=== PATIENT | male | born 1955 | race Caucasian/White ===

== ENCOUNTER 2018-02-27 10:54 | Observation (INO) | payer OTHER ==
[2018-02-27] MEDS ORDERED: PROMETHAZINE HCL 25 MG/ML INJ IVP PRN ×2 (11:28→14:38)
[2018-02-27] MEDS ORDERED: LR 1,000 ML IV SCH ×2 (11:28)
[2018-02-27] MEDS ORDERED: oxyCODONE IR 5 MG TAB PO PRN (11:28)
[2018-02-27] MEDS ORDERED: ONDANSETRON DISINTEGRATING 4 MG TAB PO PRN (11:28)
[2018-02-27] MEDS ORDERED: ceFAZolin 2 GM/SWFI 2 GM/20 ML SYR IVP ONE (11:28)
[2018-02-27] MEDS ORDERED: LIDOCAINE 1% 2 ML INJ ID PRN (11:33)
[2018-02-27] MEDS ORDERED: LR 1,000 ML IV ONE (11:33)
--- NOTE | 2018-02-27 12:10 | PDHPUP ---
History & Physical Update H&P update statement: This history and physical update is based on an assessment of the patient which was completed after admission or registration (within 24 hours), but prior to the surgery/procedure. Patient discussed/agreed upon with Dr. Jang. H&P update: H&P reviewed & patient examined, no change in patient's condition since H&P completed H&P changes: None.
[2018-02-27] MEDS ORDERED: MIDAZOLAM 2 MG/2 ML VIAL ONE (13:05)
[2018-02-27] MEDS ORDERED: MIDAZOLAM 2 MG/2 ML VIAL IVP ONE (13:08)
--- NOTE | 2018-02-27 13:10 | PDANEPAE ---
ANE History of Present Illness r knee oa ANE Past Medical History - Cardiovascular History Hx Hypertension: No Hx Arrhythmias: No Hx Chest Pain: No Hx Coronary Artery / Peripheral Vascular Disease: No Hx CHF / Valvular Disease: No Hx Palpitations: No - Pulmonary History Hx COPD: No Hx Asthma/Reactive Airway Disease: No Hx Recent Upper Respiratory Infection: No Hx Oxygen in Use at Home: No Hx Sleep Apnea: No Sleep Apnea Screening Result - Last Documented: Negative - Neurologic History Hx Cerebrovascular Accident: No Hx Seizures: No Hx Dementia: No - Endocrine History Hx Diabetes: No - Renal History Hx Renal Disorders: No - Liver History Hx Hepatic Disorders: No - Neurological & Psychiatric Hx Hx Neurological and Psychiatric Disorders: No - Cancer History Hx Cancer: No - Congenital Disorder History Hx Congenital Disorders: No - GI History Hx Gastrointestinal Disorders: Yes Gastrointestinal History Comment: DIFFICULTY SWALLOWING - EGD W/DILATION - Other Health History Other Health History: NEG - Chronic Pain History Chronic Pain: Yes (HIMANSHU KNEE PAIN) - Surgical History Prior Surgeries: KNEE R SCOPE. EGD W/DILATION X2. COLONOSCOPY. DENTAL IMPLANTS ANE Review of Systems Review of Systems: - Exercise capacity METS (RN): 5 METS ANE Patient History - Allergies Allergies/Adverse Reactions: No Known Allergies Allergy (Verified 02/27/18 11:41) - Home Medications Home Medications: Naproxen 02/21/18 [Last Taken 02/13/18] - NPO status NPO Since - Liquids (Date): 02/27/18 NPO Since - Liquids (Time): 09:00 NPO Since - Solids (Date): 02/26/18 NPO Since - Solids (Time): 21:00 - Smoking Hx Smoking Status: Former smoker - Family Anes Hx Family Hx Anesthesia Complications: NEG ANE Labs/Vital Signs - Vital Signs Blood Pressure: 133/98 Heart Rate: 90 Respiratory Rate: 16 O2 Sat (%): 94 Height: 180.34 cm Weight: 90.718 kg ANE Physical Exam - Airway Neck exam: FROM Mallampati Score: Class 1 Mouth exam: normal dental/mouth exam - Pulmonary Pulmonary: no respiratory distress - Cardiovascular Cardiovascular: regular rate and rhythym - ASA Status ASA Status: II ANE Anesthesia Plan Anesthesia Plan: GA w LMA, MAC, spinal Regional Anesthesia: adductor canal FNB
[2018-02-27] MEDS ORDERED: BACITRACIN 50,000 UNITS/10 ML SYR IRR ONE (13:11)
[2018-02-27] MEDS ORDERED: POLYMYXIN B SULFATE 500,000 UNIT/10 ML SYR IRR ONE (13:11)
[2018-02-27] MEDS ORDERED: fentaNYL 100 MCG/2 ML INJ ONE (13:12)
[2018-02-27] MEDS ORDERED: PROPOFOL/EMULSION 500 MG/50 ML BOTTLE IV ONE (13:12)
[2018-02-27] MEDS ORDERED: TRANEXAMIC ACID 1,000 MG in NS (SYRINGE) 50 ML IV ONE (13:25)
[2018-02-27] MEDS ORDERED: ROPIVACAINE 0.2% 80 MG, EPINEPHrine 0.2 MG, KETOROLAC TROMETHAMINE 30 MG, morphINE 10 M... IU ONE (13:27)
[2018-02-27] MEDS ORDERED: ceFAZolin 1 GM/5 ML SYR ONE (13:57)
[2018-02-27] MEDS ORDERED: HYDROmorphONE/DILAUDID 2 MG/ML INJ ONE (13:59)
[2018-02-27] MEDS ORDERED: *IRR*TRANEXAMIC ACID 3,000 MG/NS 50 ML IRR ONE (14:00)
[2018-02-27] MEDS ORDERED: BUPI/epINEPH/KETOROLAC/morphINE IU ONE (14:00)
[2018-02-27] MEDS ORDERED: PHENYLEPHRINE HCL 100 MCG/ML SYR ONE (14:10)
[2018-02-27] MEDS ORDERED: DEXAMETHASONE 4 MG/ML VIAL ONE (14:10)
[2018-02-27] MEDS ORDERED: ONDANSETRON 4 MG/2 ML VIAL ONE (14:10)
[2018-02-27] MEDS ORDERED: METOCLOPRAMIDE 10 MG/2 ML VIAL IVP PRN (14:38)
[2018-02-27] MEDS ORDERED: NALOXONE HCL 0.4 MG/ML INJ IVP PRN (14:38)
[2018-02-27] MEDS ORDERED: HYDROmorphONE/DILAUDID 1 MG/ML INJ IVP PRN (14:38)
[2018-02-27] MEDS ORDERED: ONDANSETRON 4 MG/2 ML VIAL IVP PRN (14:38)
[2018-02-27] MEDS ORDERED: fentaNYL 100 MCG/2 ML INJ IVP PRN (14:38)
--- NOTE | 2018-02-27 16:06 | POSTOPPROG ---
Post Op Note Date of Operation: 02/27/18 Surgeon: Jomar Jang Insulation Installer: Dolores Hitchcock, KRISTEN Anesthesia: GET(General Endotracheal) Pre-op Diagnosis: Right knee medial compartment OA Post-op Diagnosis: Right knee medial compartment OA Procedure: Right knee medial knee replacement. Inf/Abcess present in the surg proc area at time of surgery?: No Depth: Deep Incisional (Fascial) EBL: Minimal Complications: None.
--- NOTE | 2018-02-27 16:15 | POSTANESTH ---
Post Anesthetic Evaluation Cardiovascular Status: Normal, Stable Respiratory Status: Normal, Stable Level of Consciousness/Mental Status: Can Participate in Eval Pain Control: Adequate, Prn Tx Ordered Nausea/Vomiting Control: Adequate, Prn Tx Ordered Complications Possibly Related to Anesthesia: None Noted
[2018-02-27] MEDS: ONDANSETRON 4 MG/2 ML VIAL IVP PRN ×2 (18:10→19:34)
[2018-02-27] MEDS ORDERED: TRANEXAMIC ACID 1,000 MG in NS 100 ML IV ONE (19:00)
[2018-02-27] MEDS: ceFAZolin 2 GM/SWFI 2 GM/20 ML SYR IVP SCH (20:24)
[2018-02-27] MEDS ORDERED: ceFAZolin 2 GM/DEXTROSE 100 ML IV SCH (21:00)
--- NOTE | 2018-02-27 23:05 | GOP ---
[f rep st] OPERATIVE REPORT DATE OF OPERATION: 02/27/2018 SURGEON: Jomar Jang MD GEOSPATIAL IMAGE ANALYST: Dolores Hitchcock PA-C ANESTHESIA: General plus spinal plus adductor block. ANESTHESIOLOGIST: Amanda Weston MD PREOPERATIVE DIAGNOSIS: Right knee medial compartment osteoarthritis. POSTOPERATIVE DIAGNOSIS: Right knee medial compartment osteoarthritis. PROCEDURE PERFORMED: Right knee medial compartment unicondylar arthroplasty. FINDINGS: Endstage [id number] diffuse medial femoral condyle osteoarthritis, with eburnation of bone and complete loss of cartilage. Anteromedial tibial plateau osteoarthritis with similar findings, i.e. full-thickness arthritis and loss of cartilage. There were multiple periarticular osteophytes, particularly around the medial compartment. Lateral compartment was with normal chondral surfaces and no arthritis. 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 ACL and PCL were intact. Ligaments otherwise stable throughout. SPECIMENS: None. ESTIMATED BLOOD LOSS: 10 cc. INDICATIONS: This is a 62-year-old male, with right knee endstage [id number] medial compartment osteoarthritis. The patient has failed conservative care under my care for greater than one-half year. He has had prior knee injections , including steroid and PRP. He has exhausted assistive device as well as p.o. NSAID use. He underwent a partial meniscectomy via arthroscopy multiple months prior to surgery. After failing all conservative and/or non-arthroplasty care, the patient has elected to proceed with the right knee surgery as listed above. The risks, benefits, and alternatives have been discussed with the patient. All his questions have been answered prior to surgery. He has provided a signed and witnessed informed consent, which has been placed in his chart. Please see History and Physical for additional information. DESCRIPTION OF PROCEDURE: The patient was identified in the preoperative holding area and his right knee was signed and designated as the operative site. The patient was confirmed in left lower extremity toes and SCDs. He was treated with 2 g IV prophylactic cefazolin per protocol. The patient also received 1 g IV tranexamic acid prior to tourniquet inflation, as well as knee irrigation after component implantation with 3 g of tranexamic acid in 100 mL of saline. Patient was treated with standard adductor block and spinal, per the anesthesia service plan. Please see their notes for additional information. He then underwent general anesthesia and was placed supine on the OR table. Left lower extremity was confirmed to be padded throughout. Both upper extremities were placed on well-padded arm boards. Right lower extremity was wrapped proximally with cast padding and a nonsterile tourniquet and then placed over a well- padded thigh positioning device, which would allow at least 110-120 degrees of flexion of the knee. Right lower extremity was then prepped and draped in the usual sterile manner. Please note, the surgery was performed with the standard Biomet [place] Microplasty UK[employer] published technique. Esmarch exsanguination was used to inflate the tourniquet to 250 mmHg. A standard medial parapatellar incision was made over a length of approximately 8 cm. Full-thickness dermal incision was made with a #10 blade. Careful dissection was taken down through the subcutaneous fat and patellar retinaculum was divided in parallel with the incision. Next, a full-thickness arthrotomy was performed in a medial parapatellar fashion leaving a small cuff tissue on the medial aspect of the patella. Dissection was taken down through the intra- articular fat, including Hoffa fat pad. This was divided and some of the fat pad was excised anteriorly and medially. Careful dissection was then carried in a subperiosteal manner along the anterior tibial plateau to the level of the eventual vertical cut and medially out to the midportion of the medial tibial plateau. A Z retractor was placed. The anterior horn of the medial meniscus was resected out to the level of the body. Once this was completed, the tibial extramedullary guide was applied to the tibia and positioned in the appropriate position. Using the 4G clamp, the height and overall positioning of the tibial cutting block was optimized using the standard 1 mm size medium femoral spoon. Once this was all confirmed to be in the appropriate position, the CAM was locked in place and the extramedullary guide tightened. Two pins were used to stabilize the cutting block. The slotted guide was used for horizontal cut. Using the standard reciprocating saw, a vertical cut was placed along the lateral wall of the medial femoral condyle and then in a vertical orientation directly down through the medial aspect of the medial tibial eminence and down to the level of the cutting block parallel to the cutting block. Care was taken to avoid any deepening of the cut posteriorly. Next, the horizontal cut was made with the standard sagittal saw. The tibial resection was then removed en bloc and sized on the back table and found to be a size D tibial component. This was consistent with preop template planning. Once this was completed, tibial drill holes were marked with a methylene blue marker and all tibial cutting block and equipment was removed from the leg. The femoral side was then prepped, again using standard microplasty technique. An intramedullary menhaden vessel pilot hole was created with a 4 mm drill and then a 5 mm hand carver and awl. The intramedullary guide was then placed down the femoral canal. The femoral drill block was then mated with the intramedullary guide using the standard 2-pin mating device. Once this was confirmed to be in the appropriate position with visualization of the center marking on the femoral condyle, this was drilled in the appropriate position both anteriorly and posteriorly. The femoral cutting block and equipment were removed from the knee , including the intramedullary guide. Next, the posterior femoral condylar cutting block was applied to the drill holes and malleted into position. Posterior femoral cut was created. A small wafer of bone was removed from the knee. All marginal osteophytes were removed throughout the tibial plateau and medial femoral condyle. Once this was completed, the 0 spigot was placed in the appropriate drill hole within the femoral condyle and primary reaming was performed. Trial components were then placed and a size 4 rachel was found to be with appropriate tension in flexion. With 20 degrees of extension, a size 2 rachel was found to be with appropriate tension and therefore, a 2 spigot was placed in the femoral canal after removal of the trial components and additional reaming was performed. Flexion and extension gap balancing was then further performed and the knee was found to be well balanced, both at 20 degrees and 90 degrees of flexion. Once this was completed, the anti- impingement femoral guide was placed. Posterior osteotome passage was used to confirm that all posterior osteophytes were removed. In addition with direct palpation, there were no palpable osteophytes posteriorly. Anteriorly, standard anterior reaming and anti-impingement device was used to ream away any of the remaining bone ends. Once this was completed, any marginal osteophytes or sharp edges were carefully rongeured with a standard rongeur. All debris was removed from the knee. Copious irrigation with the pulsatile lavage was then performed to further irrigate and remove any debris throughout the knee. The posterior horn and body of the medial meniscus was resected in its entirety. Throughout the case, great care was taken to avoid any damage to the posterior neurovascular structures and/or capsule. In addition, throughout the surgery any and all cuts around the tibia and femur were protected with a Z retractor to protect the MCL. Once this work was completed, a full trial was performed with a size medium femoral component and size D tibial baseplate with a size 3 meniscal bearing. The knee was then taken through full range of motion and found to have appropriate full range of motion throughout. Excellent stability was confirmed both at 0, 20, and 30 degrees, no obvious flexion instability with rotation of the knee, i.e. Dionne type maneuver. Once this was completed, the femoral component was removed. The meniscal bearing was removed. The tibial slot was then prepared with standard technique. The tibial baseplate was confirmed to be flush against the vertical cut as well as posterior tibial plateau with a standard finger device. This was then held in position with a single pin. The toothbrush saw was then used through the slot of the tibial baseplate to create a standard slot for the eventual tibial component. A small stylus device was then used to remove any of the free bone within this cut slot. Finally, the keeled tibial baseplate was then placed and found to be in the appropriate position throughout. Please note that the vertical cut on the tibial plateau was placed as well as the tibial plate baseplate was placed with confirmation of this placed within and/ or parallel to the flexion plane and aiming at the ASIS. Once this work was completed, all trial components were removed. The cement interface site on both the femoral side and tibial side were drilled with a small nub drill in order to place multiple shallow drill holes for augmented cement interdigitation. On the back table, the Simplex cement with tobramycin was prepared using standard technique. Using standard pressurization gun, the cement was initially applied into the 2 femoral drill holes. Next, direct finger palpation was used to impact and/or improve interdigitation of the cement within the cancellous bone and the drill holes, both at the femoral condyle as well as the tibia. The Stayful cemented interdigitation tool was also used to further compress the cement into the proximal tibia, as well as down into the keel. Cement was also placed on the backside of the tibial component and the femoral component. Cementing of the components was performed with a single stage. Both the tibial component and femoral component were placed using standard technique. Great care was taken to place the tibial component and mallet this posteriorly, working anteriorly in order to express the cement out the front of the knee. Additional care was taken to place the femoral condyle in neutral position without altering any of the flexion or extension positioning from trialing. Once these were malleted into position and appropriate seating was confirmed, a size 4 rachel was used to tension and/or compress the components at 45 degrees of flexion. All excess cement was removed from around the prostheses. Once the cement was allowed to mature, any remaining small pieces of cement were removed from the knee. The knee was again copiously irrigated with pulsatile lavage. The 3 g solution of TXA was then placed within the knee joint and confirmed to be allowed to bathe and/or sit throughout the suprapatellar pouch, both gutters, posterior capsule of the knee, as well as around the prostheses and bone cuts. While this was sitting, a small bone plug was placed in the intramedullary canal drill hole to plug up this drill hole and prevent further bleeding into the knee. Once this was completed, the fluid was allowed to run out of the knee while a standard ropivacaine with epinephrine, ketorolac, and morphine cocktail was used to anesthetize the capsule in all areas of dissection. Tourniquet was then dropped and hemostasis was found to be excellent. The knee was again taken through a full range of motion and at this point, the 4 mm formal poly meniscal bearing was snapped into position with appropriate tension confirmed. There was no laxity throughout the range of motion with varus and valgus stress. Overall excellent clinical appearance was confirmed throughout. Closure was then begun. The medial parapatellar arthrotomy was closed with multiple #1 Ethibond sutures. The extensor retinaculum was closed with multiple 2-0 Monocryl sutures. The deep dermal layer was closed with multiple 2-0 Vicryl sutures. The skin was then closed with maggy. Sterile postoperative surgical dressings were applied with bulky cast padding over the knee. A VELMA hose was applied. The anesthesia service then took over to wake the patient up. TOURNIQUET TIME: 1 hour 28 minutes at 250 mmHg. DRAINS: None. IMPLANTS: Biomet [place] UKA with medium-size twin-peg femoral component, size D medial tibial tray, and a medium size 4 mm thickness anatomic meniscal bearing. COMPLICATIONS: None. DISPOSITION: The patient was extubated and transferred to the PACU in stable condition. /[id number]/MODL MTDD
[2018-02-27 23:56] VITALS: RESP 16
[2018-02-28] MEDS: ceFAZolin 2 GM/SWFI 2 GM/20 ML SYR IVP SCH ×2 (04:11→12:58)
--- NOTE | 2018-02-28 08:11 | SOAPPROG ---
SOAP Progress Note Assessment/Plan: Assessment: POD#1 right knee medial TKA: overall doing well, has not yet been ambulating. Has passed flatus but not yet had BM. Plan: -WBAT, up with PT/OT for ROM. -Dressing: maintain dry dressing, reinforce. Contact if abnormal bleeding/oozing /discharge, change in heat/color around wound sites. -Smoking cessation: continued to [place], patient to F/U with PCP. -DVT Prophylaxis: Lovenox x 2 weeks, administer first Lovenox dose today, SCDs, VELMA salvador, IS. -Ok to D/C once stable. Patient likely going home. -Advised patient to contact office if abnormal bleeding/oozing/discharge, change in heat/color of extremities or around wound site, change in ROM or strength, cough, congestion, chest pain, SOB, dyspnea, claudication, abnormal numbness/tingling. Patient/plan discussed with Dr. Wiseman. Subjective: in room with patient, he is sitting up. Passed flatus and has not yet had a BM. Denies abnormal bleeding/oozing/discharge, change in heat/color of extremities or around wound site, worsening change in ROM or strength, cough, congestion, chest pain, SOB, dyspnea, claudication, abnormal numbness/tingling. Has not yet been ambulating with assistance of PT/OT since he was dizzy last night; hopeful to be ambulatory today. Pain is well controlled. Objective: Vital Signs Temp Pulse Resp BP Pulse Ox 36.9 C 85 16 127/76 H 95 02/28/18 04:00 02/28/18 04:00 02/28/18 04:00 02/28/18 04:00 02/28/18 04:00 02/27/18 02/28/18 03/01/18 05:59 05:59 05:59 Intake Total 920 690 Output Total 460 Balance 460 690 Alert and oriented. Sitting up in bed. Able to respond appropriately to questions. RRR, non labored breathing, no diaphoresis. Afebrile. M/S: Right knee bandaged with no abnormal bleeding/oozing/discharge, change in heat/ color of extremities or around wound site noted. DNVI b/l in lower extremities. Calves soft/supple and NTTP b/l with brisk cap refill and negative b/l Homans. Unable to fully assess knee strength due to pain and swelling, however otherwise 5/5 strength present b/l in lower extremities, specifically distally to right knee. Limited AROM of right knee, but has full AROM from the right extremity distal to the knee and is able to wiggle all toes. Gross sensation intact b/l with no focal deficits. - Pending Discharge Pending Discharge Within 24 Hours: Yes Pending Discharge Date: 03/01/18 (Cleared by case management and PT/OT. ) Pending Discharge Time: 11:00 ICD10 Worksheet Patient Problems: Problems Problem Status Onset Osteoarthritis of right knee Acute - ICD10 Problem Qualifiers (1) Osteoarthritis of right knee Qualifiers: Osteoarthritis type: primary Qualified Code(s): M17.11 - Unilateral primary osteoarthritis, right knee
[2018-02-28 11:34] VITALS: BP 133/83; PULSE 94; TEMP 99.7; O2SAT 96
[2018-02-28] MEDS ORDERED: ENOXAPARIN 40 MG/0.4 ML SYR SC SCH (13:00)
--- NOTE | 2018-02-28 14:39 | ASMTCMCOM ---
CM Note CM Note Notes: Pt is medically stable for d/c with family support. OT rec home, PT rec outpatient vs. home. No CM d/c needs identified. Date Signed: 02/28/2018 02:39 PM Electronically Signed By:EDWARD Cooley
== END 2018-02-28 14:06 | disposition home or self-care (01) ==
LOC: F3N 10:54
PROVIDERS: ADMIT Orthopaedic Surgery; ATTEND Orthopaedic Surgery
PROC: 0SRC0L9 Replacement of Right Knee Joint with Medial Unicondylar Synthetic Substitute, Cemented, Open Approach (ICD-10-PCS; principal; 2018-02-27 13:00)
DX: M17.11 Unilateral primary osteoarthritis, right knee (principal)
CPT/HCPCS: 97116-GP; 97161-GP; 97165-GO; C1713; G0378; J0171; J0690; J1100; J1170; J1650; J1885; J2250; J2270; J2370; J2405; J2704; J3010

== ENCOUNTER 2018-10-09 11:29 | Inpatient (IN) | payer OTHER ==
[2018-10-09] MEDS ORDERED: ceFAZolin 2 GM/DEXTROSE 100 ML IV ONE (12:14)
[2018-10-09] MEDS ORDERED: LIDOCAINE 1% 2 ML INJ ID PRN (12:15)
[2018-10-09] MEDS ORDERED: LR 1,000 ML IV ONE (12:15)
--- NOTE | 2018-10-09 12:15 | PDHPUP ---
History & Physical Update H&P update statement: This history and physical update is based on an assessment of the patient which was completed after admission or registration (within 24 hours), but prior to the surgery/procedure. H&P update: H&P reviewed & patient examined, no change in patient's condition since H&P completed (Patient seen/examined in conjunction with Dr. Jang.)
[2018-10-09] MEDS ORDERED: EPINEPHrine 1 MG/ML INJ ONE (12:19)
[2018-10-09] MEDS ORDERED: BACITRACIN 50,000 UNITS/10 ML SYR IRR ONE (12:20)
[2018-10-09] MEDS ORDERED: POLYMYXIN B SULFATE 500,000 UNIT/10 ML SYR IRR ONE (12:20)
[2018-10-09] MEDS ORDERED: LIDO/EPI 1% **for epidural** 30 ML SDV ONE (12:20)
[2018-10-09] MEDS ORDERED: MIDAZOLAM 2 MG/2 ML VIAL ONE (13:42)
[2018-10-09] MEDS ORDERED: PROPOFOL/EMULSION 500 MG/50 ML BOTTLE IV ONE ×3 (13:47→16:17)
[2018-10-09] MEDS ORDERED: BUPIVACAINE/DEXTROSE 7.5MG/ML 2 ML SPINAL AMP SP ONE (13:47)
[2018-10-09] MEDS ORDERED: fentaNYL 100 MCG/2 ML INJ ONE ×2 (13:47→17:16)
[2018-10-09] MEDS ORDERED: TRANEXAMIC ACID 1,000 MG in NS 100 ML IV ONE ×2 (14:11→14:30)
[2018-10-09] MEDS ORDERED: RANITIDINE 50 MG/2 ML VIAL ONE (14:11)
[2018-10-09] MEDS ORDERED: METOCLOPRAMIDE 10 MG/2 ML VIAL ONE ×2 (14:11)
--- NOTE | 2018-10-09 14:16 | PDANEPAE ---
ANE Past Medical History - Cardiovascular History Hx Hypertension: No Hx Arrhythmias: No Hx Chest Pain: No Hx Coronary Artery / Peripheral Vascular Disease: No Hx CHF / Valvular Disease: No Hx Palpitations: No - Pulmonary History Hx COPD: No Hx Asthma/Reactive Airway Disease: No Hx Recent Upper Respiratory Infection: No Hx Oxygen in Use at Home: No Hx Sleep Apnea: No Sleep Apnea Screening Result - Last Documented: Negative - Neurologic History Hx Cerebrovascular Accident: No Hx Seizures: No Hx Dementia: No - Endocrine History Hx Diabetes: No Hypothyroid: No Hyperthyroid: No Obesity: no Endocrine History Comment: bmi 28 - overweight - Renal History Hx Renal Disorders: No - Liver History Hx Hepatic Disorders: No - Neurological & Psychiatric Hx Hx Neurological and Psychiatric Disorders: No - Cancer History Hx Cancer: No - Congenital Disorder History Hx Congenital Disorders: No - GI History GERD: no Hx Gastrointestinal Disorders: Yes Gastrointestinal History Comment: hx of DIFFICULTY SWALLOWING - EGD W/DILATION - Other Health History Other Health History: wears glasses - Chronic Pain History Chronic Pain: Yes (left knee) - Surgical History Prior Surgeries: 02/27/18 right partial knee replacement with Suhail. KNEE R SCOPE. EGD W/DILATION X2. COLONOSCOPY. DENTAL IMPLANTS ANE Review of Systems Review of Systems: - Exercise capacity Exercise capacity: >=4 METS, limited by disability METS (RN): 5 METS ANE Patient History - Allergies Allergies/Adverse Reactions: No Known Allergies Allergy (Verified 10/09/18 12:52) - Home Medications Home Medications: NK [No Known Home Meds] 09/20/18 [Last Taken Unknown] - NPO status NPO Since - Liquids (Date): 10/09/18 NPO Since - Liquids (Time): 09:00 NPO Since - Solids (Date): 10/08/18 NPO Since - Solids (Time): 18:00 - Anes Hx Anes Hx: no prior problems - Smoking Hx Smoking Status: Former smoker - Alcohol Use Alcohol Use: Occasionally - Family Anes Hx Family Anes Hx: neg - N/A Family Hx Anesthesia Complications: none ANE Labs/Vital Signs - Vital Signs Blood Pressure: 159/96 Heart Rate: 82 Respiratory Rate: 16 O2 Sat (%): 96 Height: 180.34 cm Weight: 90.718 kg ANE Physical Exam - Airway Neck exam: FROM Mallampati Score: Class 2 Mouth exam: normal dental/mouth exam - Pulmonary Pulmonary: no respiratory distress, no rales or rhonchi, clear to auscultation - Cardiovascular Cardiovascular: regular rate and rhythym, no murmur, rub, or gallop - ASA Status ASA Status: II ANE Anesthesia Plan Anesthesia Plan: MAC, spinal Total IV Anesthesia: No
[2018-10-09] MEDS ORDERED: MIDAZOLAM 2 MG/2 ML VIAL IVP ONE (14:41)
[2018-10-09] MEDS ORDERED: HYDROCODONE/APAP 5/325 TAB PO PRN ×2 (14:41→17:04)
[2018-10-09] MEDS ORDERED: NALOXONE HCL 0.4 MG/ML INJ IVP PRN (14:41)
[2018-10-09] MEDS ORDERED: ONDANSETRON 4 MG/2 ML VIAL IVP PRN ×2 (14:41→16:58)
[2018-10-09] MEDS ORDERED: PROMETHAZINE HCL 25 MG/ML INJ IVP PRN ×2 (14:41→16:58)
[2018-10-09] MEDS ORDERED: LR 500 ML IV PRN (14:41)
[2018-10-09] MEDS ORDERED: ACETAMINOPHEN 500 MG TAB PO PRN (14:41)
[2018-10-09] MEDS ORDERED: PHENYLEPHRINE HCL 100 MCG/ML SYR IVP PRN (14:41)
[2018-10-09] MEDS ORDERED: ROPIVACAINE HCL 150 MG/30 ML INJ ONE (15:08)
--- NOTE | 2018-10-09 15:32 | PDMN ---
Medical Necessity Medical necessity: [facility]: S700 knee arthroplasty [id number] APPROVED IN SERVICE [id number] [phone] [id number]
[2018-10-09] MEDS ORDERED: PHENYLEPHRINE HCL 100 MCG/ML SYR ONE (15:40)
[2018-10-09] MEDS ORDERED: ONDANSETRON DISINTEGRATING 4 MG TAB PO PRN (16:58)
[2018-10-09] MEDS ORDERED: diphenhydrAMINE 25 MG CAP PO PRN (16:58)
[2018-10-09] MEDS ORDERED: DIPHENOXYLATE/ATROPINE LOMOTIL 1 TAB PO PRN (16:58)
[2018-10-09] MEDS ORDERED: CYCLOBENZAPRINE 10 MG TAB PO PRN (16:58)
--- NOTE | 2018-10-09 16:58 | POSTOPPROG ---
Post Op Note Date of Operation: 10/09/18 Surgeon: Jomar Jang [employer] Hatchery Superintendent: Dolores Hitchcock, KRISTEN Anesthesia: Spinal Pre-op Diagnosis: Left knee medial DJD Post-op Diagnosis: Left knee medial DJD Procedure: Left knee unicondylar arthroplasty Inf/Abcess present in the surg proc area at time of surgery?: No Depth: Deep Incisional (Fascial) EBL: 50-100
[2018-10-09] MEDS ORDERED: LR 1,000 ML IV SCH (17:00)
[2018-10-09] MEDS: fentaNYL 100 MCG/2 ML INJ IVP PRN ×2 (17:18→17:45)
[2018-10-09] MEDS ORDERED: HYDROCODONE/APAP 5/325 TAB ONE (18:05)
[2018-10-09] MEDS: ACETAMINOPHEN 325 MG TAB PO SCH ×2 (18:53→22:57)
[2018-10-09] MEDS: oxyCODONE IR 5 MG TAB PO PRN ×2 (20:35→22:19)
[2018-10-09] MEDS: FAMOTIDINE 20 MG TAB PO SCH (20:35)
[2018-10-09] MEDS: ceFAZolin 2 GM/DEXTROSE 100 ML IV SCH (22:15)
[2018-10-09] MEDS: OXYCODONE/APAP 5/325 TAB PO PRN (22:57)
[2018-10-10] MEDS: oxyCODONE IR 5 MG TAB PO PRN ×2 (05:01→12:41)
[2018-10-10] MEDS: ceFAZolin 2 GM/DEXTROSE 100 ML IV SCH (05:02)
[2018-10-10] MEDS: ACETAMINOPHEN 325 MG TAB PO SCH ×2 (05:02→13:20)
[2018-10-10 05:55] LABS: PLATELET COUNT 153 10^3/uL (150-400)
[2018-10-10 06:06] LABS: INR 0.97 (0.83-1.16); PROTIME(PATIENT) 13.1 SEC (12.0-15.0)
[2018-10-10 07:29] VITALS: BP 154/93
--- NOTE | 2018-10-10 07:52 | SOAPPROG ---
SOAP Progress Note Assessment/Plan: Assessment: POD#1 Left knee UA: doing well, pain well controlled. Has been ambulatory. Plan: WBAT. PT/OT for eval/tx for left knee unicondylar arthroplasty. Maintain dry dressing until first post-op. Can reinforce prn. Polar care prn for pain control/swelling reduction. DVT: VELMA salvador, SCDs, IS, Xarelto 10mg po daily x14 days, has home rx given at pre-op. Can D/C once meets floor criteria, PT/OT reccs, CM reccs. Pain Meds: has home rx given at pre-op. RTC for first post op appt as scheduled. Advised to watch for abnormal numbness/tingling, worsening pain, bleeding/oozing /discharge, change in heat/color of extremity or around wound sites, abnormal distal swelling, cramping in his calves/ankles and to seek immediate medical attn if seen. Questions/concerns call our office at [phone]. Patient seen/examined in conjunction with Dr. Jang. 10/10/18 08:05 Subjective: in room. Able to respond appropriately to questions/command. Has passed flatus, no BM. Eating well, pain well controlled. Has been ambulating without difficulty. Denies abnormal numbness/tingling, worsening pain, bleeding /oozing/discharge, change in heat/color of extremity or around wound sites, abnormal distal swelling, cramping in his calves/ankles. Objective: Vital Signs Temp Pulse Resp BP Pulse Ox 36.9 C 89 16 154/93 H 94 10/10/18 07:29 10/10/18 07:29 10/10/18 07:29 10/10/18 07:29 10/10/18 07:29 Laboratory Results 10/10/18 05:25 10/10/18 05:25 10/09/18 10/10/18 10/11/18 05:59 05:59 05:59 Intake Total 1850 Output Total 830 Balance 1020 PT 13.1 SEC (12.0-15.0) 10/10/18 05:25 INR 0.97 (0.83-1.16) 10/10/18 05:25 AO NAD, non-labored breathing, no diaphoresis. Afebrile. MS: Focalized exam of b/l lower extremities: left knee bandaged with no abnormal bleeding/oozing/discharge, change in heat/color around wound sites or of extremity. NTTP throughout. AROM: 0-15 limited by swelling, bandaging and pain but extensor and flexor mechanisms grossly intact. FROM distally throughout with 5/5 strength distally. Calves soft/supple and NTTP b/l with brisk cap refill b/l. Negative b/l Homans. All compartments soft. DNVI b/l with no focal deficits. Negative passive stretch b/l. VELMA hose and SCDs in place, on and pumping during my visit. X-rays: 2 views of left knee show UKA in good position/alignment with no fractures, malalignments or deformities seen. - Pending Discharge Pending Discharge Within 24 Hours: Yes Pending Discharge Date: 10/11/18 Pending Discharge Time: 11:00 ICD10 Worksheet Patient Problems: Problems Problem Status Onset Osteoarthritis of right knee Acute
--- NOTE | 2018-10-10 08:05 | GOP ---
DATE OF OPERATION: 10/09/2018 SURGEON: Jomar Jang MD SHIP ENGINEER: LILIAN Richards. ANESTHESIA: Spinal with adductor block. ANESTHESIOLOGIST: Dr. Gagnon. PREOPERATIVE DIAGNOSIS: 1. Left knee end-stage medial compartment osteoarthritis. 2. Left knee lateral compartment joint line tenderness concerning for meniscus tear. 3. 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 4. Left knee intraarticular synovitis. POSTOPERATIVE DIAGNOSIS: 1. Left knee end-stage medial compartment osteoarthritis. 2. Left knee lateral meniscus tear. 3. 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 4. Left knee intra-articular synovitis. 5. Left knee suprapatellar and infrapatellar plica. PROCEDURE PERFORMED: 1. Left knee open medial compartment unicondylar arthroplasty. 2. Left knee arthroscopic partial lateral meniscectomy. 3. Left knee arthroscopic chondroplasty of trochlear and lateral tibial plateau chondromalacia. 4. Left knee synovectomy with ablation of suprapatellar and infrapatellar plica and peripatellar releases. FINDINGS: EUA was with ROM of 0-135. Knee was stable throughout without any ligamentous laxity. There were palpable osteophytes medially. No crepitation on ROM. Arthroscopic findings: 1. Suprapatellar pouch was with extensive synovitis as well as a completely compartmentalized suprapatellar plica completely compartmentalizing suprapatellar plica. Most of this was released. The suprapatellar pouch was of normal volume. Gutters and pouch were clear of any loose bodies. 2. Patellofemoral joint was with normal cartilage of the patella. There was a central trochlear partial-thickness chondral defect measuring 8 mm medial to lateral and 10 mm superior to inferior. There were marginal flap segments of this cartilage defect that were unstable. Midline tracking of the patella. 3. Medial compartment was with end-stage [id number]-[id number] osteoarthritis with complete loss of cartilage and eburnated bone. There was extensive maceration and tearing of the medial meniscus. 4. Lateral compartment was with a posterior horn and lateral meniscal root degenerative appearing tear. There were multiple fronds and torn segment of the lateral meniscus. In addition, there was a grade 1-2 chondromalacia of the lateral tibial plateau more medially. The remainder of the body and anterior horn of the meniscus was normal. Remainder of the cartilage of the lateral femoral condyle and peripheral or lateral aspect of left tibial plateau was normal. 5. Notch was with minor marginal osteophytes medially. PCL and ACL were intact. Inner meniscal ligament was intact. There was a smaller grade 1-2 infrapatellar plica with extensive synovitis. 6. Posteromedial and posterolateral compartments were without any loose bodies. Meniscal roots intact. SPECIMENS: None. ESTIMATED BLOOD LOSS: 30 cc. INDICATIONS: This is a 63-year-old active male, who has had worsening left knee pain for greater than 2 years under my care. He has had extensive conservative care, including injections and modalities such as NSAIDs as well as ice and has had extensive physical therapy. After exhausting extensive conservative care, he has elected to proceed with surgery as listed above. He wished to avoid a preoperative MRI and therefore he understood that I would arthroscopically inspect his knee and treat any diseased findings in the patellofemoral as well as lateral compartment, i.e. compartments outside of his intended arthroplasty. All questions were answered prior to the surgery. He provided a signed witnessed informed consent, which was placed in his chart. Please see history and physical for additional information. DESCRIPTION OF PROCEDURE: The patient was identified in the preoperative holding area and his left knee was signed as the operative site. The patient was confirmed in right lower extremity VELMA hose and SCDs. He was treated with 2 g IV prophylactic cefazolin per protocol. In addition, prior to incision. He was also treated with 1 g of TXA per standard preop protocol. A spinal was performed. General sedation was performed by Anesthesia as well. Right lower extremity was placed on a well-padded OR table with abundant padding around the heel and ankle as well as the proximal fibula. The left lower extremity was wrapped proximally with cast padding and a nonsterile tourniquet, and then a standard thigh positioning device with abundant padding on it was used with an additional placed gel pad. Left lower extremity was then prepped and draped in the usual sterile manner. Standard anterolateral and anteromedial scope portals were established with a # 11 blade. Complete diagnostic arthroscopy was performed with findings as above. Initial focus was on the lateral compartment with the knee in figure-of-4 position. Using a basket resection tool and the motorized shaver, the torn segments of the posterior horn and root of the lateral meniscus were carefully resected back to a stable base. A standard chondroplasty was then performed, resecting only the unstable flap segments to a stable base. Once this was completed, the knee was taken out of a figure-of-4 position and due to the extensive synovitis and fat pad hypertrophy, this was carefully ablated anteriorly. The infrapatellar plica was released at its origin at the notch and then debrided anteriorly. Meticulous hemostasis was maintained with the ArthroCare wand. Once this was completed, the medial compartment was briefly inspected and found to be with end-stage arthrosis as listed above. With the knee in ranges of 0-15 degrees of flexion, the pouch and patellofemoral joint were addressed. The trochlear chondral defect was assessed with a probe and there were flap segments both superiorly and inferiorly. Using the full-radius shaver, these flap segments were carefully resected back to a stable base. The probe was used to palpate and evaluate the base of the lesion and this was found to be partial thickness and with intact cartilage overlying the subchondral bone. There were no areas of exposed bone. Therefore, nothing more than the chondroplasty was performed. Superiorly, the suprapatellar pouch was ablated both anteriorly and posteriorly and released in order to decrease the potential stenosis and/or increased contact stress between the patella and the trochlea, given the cartilage defect of the trochlea. In addition, both medial and lateral capsular releases were performed at the level of the retinaculum. Additional debridement and synovectomy were performed within the suprapatellar pouch and around the patella. Once all work was completed using the arthroscope , the saline was evacuated and the scope was removed. Esmarch exsanguination was used to inflate the tourniquet to 250 mmHg. The lateral portal was closed with a simple interrupted nylon stitch. The medial portal was incorporated into the medial parapatellar incision for the UKA surgery. A standard full-thickness incision was made with a #10 blade. Careful dissection was taken down through the subcutaneous fat and the retinaculum was identified. Using a 10 blade, a standard medial parapatellar arthrotomy was performed with care taken to leave a cuff of tissue along the medial aspect of the patella for eventual closure of the arthrotomy. Fat pad and synovial tissues were divided. Great care was taken to avoid any damage to the [place] portion of the trochlea and any other structures within the notch. The dissection was carried inferiorly and the anterior portion of the medial meniscus was resected. Dissection was carried along the medial tibial metaphysis a maximum of 1.5 cm directly anterior to the medial compartment and then as we moved posteriorly, I stayed less than a centimeter below the joint line. The tissues were carefully released with the Bovie cautery device. A Z- retractor was placed. Excellent exposure was achieved. Proximally, the arthrotomy was extended up into the most inferior portion of the quad tendon in order to improve mobilization of the patella. With a blunt retractor, the patella was carefully retracted laterally and with subluxation, there was excellent exposure to the medial compartment. Once appropriate exposure was achieved, all osteophytes were removed with a rongeur throughout the tibial and femoral periarticular regions. The tibial cutting guide was applied to the anterior aspect of the leg and adjusted such that the 0 rachel was placed to the appropriate position and then pinned in this position with a 4 G clamp. The 4 G clamp was then removed and the vertical cut was made of the medial tibial plateau with great care taken to avoid penetration posteriorly using the markings of the saw as well as palpation of the posterior portion of the plateau. The vertical cut was made with care taken to not elevate my hand, i.e. to avoid any stress fracture posteriorly. Once the full vertical cut was completed, the slide rachel was applied and the horizontal cut was made with a standard 10 mm oscillating saw. The medial tibial plateau bone wafer was then carefully grasped with a Marlon and removed from the wound anteriorly. There were small areas of soft tissue attachments that were carefully released from the posterior plateau wafer. Once this was removed, the proximal tibial cut was inspected and found to be excellent throughout. Irrigation was used to further irrigate the surgical site. The femoral canal was then created approximately 1 cm anterior to the articular margin and along the medial border of the notch. This was in the optimal position defined by the Mercer UKA technique. An intramedullary guidewire was then placed into the femur. This was tapped down into the appropriate position. The femoral drill block was applied and with the mating device, it was repaired to the intramedullary guidewire. Marking was placed with a marking pen along the central aspect of the medial femoral condyle and drill holes were confirmed to include this central line. Once this was confirmed, both the 4 mm and 6 mm drill holes were created. After these drills were created, the meeting device as well as the femoral drill guide were removed. The intramedullary guide wire was also removed. With the femoral cutting block tapped into place, the posterior femoral condylar cut was made. This wafer of bone was then also removed from the knee. Next, the 0 spigot was applied and standard reaming was performed. Once this was completed, the exposure to the posterior aspect of the knee was optimal and the remainder of the medial meniscus was excised. A small cuff of meniscal tissue was left medially to protect the MCL. Next, the trial components were placed within the knee and flexion and extension balancing was performed. Ultimately, it was necessary to place a #3 spigot for balance of the extension gap to the flexion gap. The gap was overall measured to be approximately 4 mm with the 4 mm flexion extension gap measuring tool. With this completed, the patient had a very nicely balanced knee in full extension through flexion to maximum approximately 110 degrees on the table. Once this was completed, the anterior impingement guide was malleted into position in the femur. Standard anterior reaming was performed in order to assure no further impingement. A rongeur was then used to sweep throughout the knee and assure there were no other signs of osteophytes or bony prominences. The femoral side appeared perfect throughout. The posterior femoral chisel was then used to assure no osteophytes posteriorly. Once this was completed, the femoral guide was removed. The tibial slot was then created with a standard toothbrush oscillating saw. The T-handle was used to assure that the tibial cutting guide was flush against the vertical cut laterally as well as pulled anteriorly along the posterior margin of the tibial plateau. Once this was in position, it was carefully held in position with a small bony nail. The tibial component slot was then created. This slot was swept with the small sweeping tool to assure all bony debris was removed. Irrigation was again performed and bony surfaces were inspected. The trial tibial component with fin was then placed and this was found to be appropriately positioned. Final trialing was performed with the femoral trial as well as a #4 meniscal bearing and the knee was found to be with optimal stability in all degrees of range of motion as well as excellent range of motion and tracking of the meniscal bearing. Given the above, all the trial components were removed. The femoral and tibial surfaces where eventual segmentation would be performed, were carefully treated with small drill poke holes using the standard Biomet drill device. On the back table the cement was then mixed. The formal components were selected on the back table and ready for implantation. Cement was then placed along the backside of the femoral component as well as into the femoral drill holes for the lugs of the femoral component. The tibial side was also treated with cement along the bone with pressurization using the standard Biomet pressurization device, both at the proximal tibial keel slot, as well as within the metaphyseal bone. Along the back of the tibial component, there was also cement placed. The tibial component was first cemented and placed within the slot pressing this down into position posterior to anterior in order to extravasated the cement anteriorly and avoid extravasation posteriorly into the posterior capsule. A Morris and Schnitt were used to remove the excess cement. Next, the femoral component was placed and malleted into position and again all excess cement was removed with the Schnitt and Sushila device. The knee was then placed in 45 degrees of flexion and a #5 flexion extension gap tool was used to hold the knee in a pressurized situation in order to optimize cement fixation. The cement was then allowed to mature. Any excess extravasated cement was removed with a Schnitt clamp and a Sushila tool. Once the cement was completely hardened and mature, the components were evaluated and grasped and found to be very stable in position. Final trial was performed with the #4 trial meniscal bearing and again stability and appropriate reconstruction was confirmed. The trial was then removed and a formal size 4 poly meniscal bearing was snapped into position with appropriate tension. The tourniquet was then dropped. Hemostasis was confirmed throughout the knee joint. The femoral intramedullary guide hole was packed with bone graft from the backside of the tibial resection piece and this limited any blood from extravasating out through this intramedullary canal fuel pilot engineer hole. Care was taken to pack this bone in, such that nothing would dislodge into the joint. The wound was further irrigated with copious pulsatile lavage. All excess saline was suctioned from the knee. Again, hemostasis was confirmed throughout. Closure was then begun. Multiple #1 Ethibond sutures were used to close the arthrotomy. Great care was taken to reapproximate all aspects of the arthrotomy from proximal to distal and with appropriate alignment. Next, 2-0 Vicryl sutures were used to reapproximate the retinacular and subcutaneous fatty layers, as well as the deep dermal layer with multiple interrupted buried 2-0 Vicryl sutures. The skin was then closed with maggy. The knee was confirmed to have excellent range of motion after closure. Patellar stability was also confirmed with no ability to dislocate medial or lateral in 80 degrees of range of motion, but particularly at full extension. Again, the knee was assessed and found to have excellent stability with varus and valgus stress at 0 and 30 degrees, as well as anterior drawer, posterior drawer and Sherman maneuvers. Excellent hemostasis was confirmed. Sterile postoperative surgical dressings were applied. VELMA hose was applied. The anesthesia service then took over to wake the patient up. TOURNIQUET TIME: 1 hour 36 minute at 250 mmHg. IMPLANTS: Biomet Mercer partial knee system, medial compartment UKA with a size medium femoral component cemented, size D medial tibial tray cemented, size medium 4 mm thick anatomic meniscal bearing. COMPLICATIONS: None. DISPOSITION: The patient was extubated and transferred to PACU in stable condition. /[id number]/MODL MTDD
[2018-10-10] MEDS ORDERED: RIVAROXABAN 10 MG TAB PO SCH (09:00)
[2018-10-10] MEDS: FAMOTIDINE 20 MG TAB PO SCH (09:21)
[2018-10-10] MEDS: OXYCODONE/APAP 5/325 TAB PO PRN (09:21)
--- NOTE | 2018-10-10 12:37 | ASMTLACE ---
[facility] Length of stay for Answers: 1 day current admission Acuity / Level of Answers: Yes Care: Did the patient have an inpatient admission? Comorbidities - select Answers: Opioid dependence all that apply / Chronic pain # of Emergency department Answers: 0 visits in the last 6 months Score: 8 Date Signed: 10/10/2018 12:36 PM Electronically Signed By:Paulette Bermudez RN
--- NOTE | 2018-10-10 12:39 | ASMTCMCOM ---
CM Note CM Note Notes: Patient has been cleared by therapy and RN has no concerns about patient's safety to safely d/c home. CM available if any needs arise. Plan: Independent Date Signed: 10/10/2018 12:38 PM Electronically Signed By:Paulette Bermudez RN
--- NOTE | 2018-10-10 14:55 | PDDCSUM ---
Discharge Summary Discharge Summary: Patient Name: Abhinav Farley, 1955 Admission Date: 10/09/2018 Discharge Date: 10/10/2018 Supervising Physician: Dr. Jomar Jang Discharge Dx: Left knee medial compartment DJD Consultations: PT/OT Procedures: Left knee UKA; Date of Surgery: 10/09/2018 Complications: None. History and Hospital Course: POD #1 left knee UKA: overall patient was doing well following surgery, no complications. Pain was well controlled and he was admitted overnight on 2017. On 10/10/2018 he had been up with PT/OT, WBAT precautions. Was eating well, ambulatory with minimal pain and had passed flatus. Following clearance from PT/OT and case management he was discharged home in good condition. Discharge instructions included: -Weight bearing as tolerated to left knee. Use PT/OT exercises shown in hospital. -Maintain dry dressing until first post-op appointment. Can reinforce as needed. Questions/concerns regarding dressing, abnormal bleeding/oozing/ discharge can be addressed to our office. -Polar care as needed for pain control and swelling. -DVT Prevention: continue VELMA hose, begin Xarelto 10mg daily for 14 days, should have home rx given at pre-op. -Pain Meds: have home rx given at pre-op, Percocet 5/325: can take 1-2 every 6- 8 hours as needed for pain. -Return to clinic for first post op appt as scheduled. -Please watch for abnormal numbness/tingling, worsening pain, bleeding/oozing/ discharge, change in heat/color of extremity or around wound sites, abnormal distal swelling, cramping in his calves/ankles and to seek immediate medical attn if seen. Any questions/concerns feel free to call our office at [phone]. Patient was seen/examined in conjunction with Dr. Jang during his stay.
== END 2018-10-10 14:10 | disposition home or self-care (01) | DRG 470 ==
LOC: F3N 11:29
PROVIDERS: ADMIT Orthopaedic Surgery; ATTEND Orthopaedic Surgery
DX: M17.12 Unilateral primary osteoarthritis, left knee (principal); M94.262 Chondromalacia, left knee; M67.52 Plica syndrome, left knee
CPT/HCPCS: 97116-GP; 97161-GP; 97165-GO; C1713; J0171; J0690; J2250; J2270; J2370; J2704; J2765; J2780; J2795; J3010